=== PATIENT | female | born 1980 | race Caucasian/White ===

== ENCOUNTER 2022-10-12 09:05 | Day surgery (SDC) | payer OTHER, SELFPAY ==
[2022-10-12 09:36] VITALS: BP 116/69; PULSE 80; RESP 18; TEMP 36.3; O2SAT 99; BMI 34.3
[2022-10-12] MEDS: Lactated Ringers 1,000 ML 15 ML IV (09:43)
--- NOTE | 2022-10-12 10:24 | PCM.DC.SUM ---
Providers Primary Care Physician: [place] [facility] Reason For Visit: EXCISION/DESTRUCTION TONSIL LESION LEFT Medications at Discharge Home Medications fexofenadine 180 mg tablet (Blank Allergy) 180 mg PO QHS 10/02/22 fluoxetine 20 mg capsule (Prozac) 20 mg PO DAILY 10/02/22 levonorgestrel 0.15 mg-ethinyl estradiol 30 mcg tablets,3 mos pack(91) (Jolessa) 1 tab PO QHS 10/02/22 levothyroxine 112 mcg capsule 112 mcg PO DAILY 10/02/22 magnesium oxide 420 mg tablet 420 mg PO QHS 10/02/22 Weight / BMI Weight Weight: 90.718 kg Body Mass Index (BMI) 34.3 D/C Instructions Discharge Diet: Soft diet Please Follow Up With: Iker Ribera MD When: 2 weeks Meaningful Use Info Meaningful Use Diagnoses (Choose all that apply): None applicable Discharge Plan Admission Attending Provider: Iker Riebra Primary Care Provider: [place] Discharge Orders/Prescriptions Prescriptions: No Action magnesium oxide 420 mg Tablet 420 mg PO QHS fexofenadine [Blank Allergy] 180 mg Tablet 180 mg PO QHS fluoxetine [Prozac] 20 mg Capsule 20 mg PO DAILY levonorgestrel-ethinyl estrad [Jolessa] 0.15 mg-30 mcg (91) Tablets,Dose Pack,3 Month 1 tab PO QHS levothyroxine 112 mcg Capsule 112 mcg PO DAILY Referrals / Follow Up: [facility] [Primary Care Provider] - Disposition Disposition (needs filled in before D/C Order can be placed): Home, Self Care
--- NOTE | 2022-10-12 10:40 | LES_PTH ---
PATIENT: JANIS PENN LOC: [facility] [place] U#:[id number] AGE/SX: 42/F ROOM: RE10/12/[address]: Dr. 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 YOEL:ayleen 10/13/2022 MICROSCOPIC DESCRIPTION Slides are reviewed. GROSS DESCRIPTION Received in fixative is one container labeled with the patient's name and designated left tonsil lesion. The specimen consists of a piece of sánchez soft tissue measuring 0.7 x 0.3 x 0.3 cm. The entire specimen is submitted in one cassette. / SJ:ayleen 10/12/2022 TC:1 CPT: 16114
[2022-10-12] MEDS: Lidocaine 1% /Epi 1:100 (20ml) 20 ML Vial (10:43)
--- NOTE | 2022-10-12 10:49 | PCM.OPRPT ---
Report of Operation Date of Procedure: 10/12/22 Pre-Operative Diagnosis: oropharyngeal neoplasm Post-Operative Diagnosis: same Surgery/Procedure Performed:: excision oropharyngeal lesion Surgeon: Iker Ribera Type of Anesthesia: General Anesthesiologist: Esa Grewal Estimated Blood Loss (mL): minimal Description of Procedure: The patient was taken to the operating on 10/12/2022. She was placed in the supine position on the operating room table. She was given sufficient general endotracheal anesthesia. The table was turned 90 degrees in a clockwise fashion. A Cristofer mouthgag was inserted into the patient's mouth the patient was suspended on a Breaux stand. The lesion was seen emanating from the left posterior tonsillar pillar/soft palate. The mucosa was injected with 1% lidocaine with epinephrine. The lesion was then excised with a 15 blade. This was sent for permanent section. Suction cautery was used for hemostasis. I then irrigated the oropharynx and all irrigant was suctioned from the oropharynx. The patient was then awoken and brought to the recovery room in stable condition. Blood loss minimal, replacement none. Sponge, needle, and instrument count were correct at the end of the procedure.
[2022-10-12 10:55] VITALS: BP 116/69; BP 117/71; PULSE 74; RESP 16; TEMP 36.6; O2SAT 97
[2022-10-12 11:00] VITALS: BP 115/68; BP 116/69; PULSE 78; RESP 16; O2SAT 98
[2022-10-12 11:15] VITALS: BP 116/69; BP 121/72; PULSE 71; RESP 16; O2SAT 97
[2022-10-12 11:30] VITALS: BP 106/81; BP 116/69; PULSE 67; RESP 16; TEMP 36.2; O2SAT 99
[2022-10-12 11:47] VITALS: BP 116/69
== END 2022-10-12 12:08 | disposition home or self-care (01) ==
LOC: SDC 09:08 → AC 09:10
PROVIDERS: Referring Provider Otolaryngology; Visit Provider Otolaryngology
PROC: (CPT 42808; principal; 2022-10-12 10:25)
DX: D10.5 Benign neoplasm of other parts of oropharynx (principal); Z87.891 Personal history of nicotine dependence; E07.9 Disorder of thyroid, unspecified; Z87.19 Personal history of other diseases of the digestive system; F41.9 Anxiety disorder, unspecified
CPT/HCPCS: 42808; 00170; 88304; 88305; J7120; J2405